=== PATIENT | female | born 1940 | race Caucasian/White ===

== ENCOUNTER → 2016-07-25 | Outpatient (CLI) | payer MEDICARE ==
[~2016-07-25] MED LIST: ALLO100T PO; AMIO200T PO; ARMO30TA PO; ASPI1TAB69 PO; BIOT1SUB SL; CIPR250T2 PO; GABA400C5 PO; LYSI1TAB4 PO; MAGN100T2 PO; PROBCAP10 PO; PYRI1TAB5 PO; SODI-345 PO; THYR15 PO; TOPR50TA PO; TRAM50TA PO; VITA500030 CHEW; ZINC25TA PO; [UNRECOGNIZED DRUG - CODE]; [UNRECOGNIZED DRUG - CODE]
[2016-07-25 14:03] LABS: AUTOMATED NEUTROPHIL # 3.5 TH/MM3 (1.8-7.7); BASOPHIL % 0.8 % (0.0-2.0); EOSINOPHIL # 0.1 TH/MM3 (0-0.4); EOSINOPHIL % 2.4 % (0.0-4.0); HEMATOCRIT 36.2 % (35.0-46.0); HEMO FLAGS DIFF FINAL; LYMPH % 20.5 % (9.0-44.0); LYMPHOCYTE # 1.1 TH/MM3 (1.0-4.8); MEAN CORPUSCULAR HEMOGLOBIN 28.6 PG (27.0-34.0); MEAN CORPUSCULAR HGB CONC 32.6 % (32.0-36.0); NEUT % 66.3 % (16.0-70.0); PLATELET COUNT 150 TH/MM3 (150-450); RED BLOOD COUNT 4.12 MIL/MM3 (4.00-5.30); RED CELL DISTRIBUTION WIDTH 15.1 % (11.6-17.2); WHITE BLOOD COUNT 5.3 TH/MM3 (4.0-11.0)
[2016-07-25 14:07] LABS: BACTERIA, URINE OCC /hpf; BLOOD, URINE SMALL (NEG); GLUCOSE,URINE NEG (NEG); HYALINE CAST, URINE 1 /lpf (RARE); KETONE, URINE NEG (NEG); MUCUS URINE FEW /lpf (OCC); NITRITE,URINE NEG (NEG); PH, URINE 5.5 (5.0-8.5); SQUAMOUS EPITHELIAL CELL URINE 1 /hpf (0-5); URINE COLOR LIGHT-YELLOW (YELLW/STRAW)
[2016-07-25 14:10] LABS: APTT (PATIENT) 24.7 SEC (24.3-30.1); INTERNATIONAL NORMALIZED RATIO 0.9 RATIO
[2016-07-25 14:12] LABS: COMMENT (UR) CULTURE INDICATED; CULTURE IF INDICATED CULTURE INDICATED
[2016-07-25 14:28] LABS: ALKALINE PHOSPHATASE 102 U/L (45-117); ALT (GPT) 53 U/L (10-53); ANION GAP 9 MEQ/L (5-15); AST (GOT) 46 U/L (15-37); BICARBONATE 26.2 MEQ/L (21.0-32.0); BLOOD UREA NITROGEN 37 MG/DL (7-18); CHLORIDE 105 MEQ/L (98-107); GLOMERULAR FILTRATION RATE 25 ML/MIN (>89); GLUCOSE,FASTING 106 MG/DL (74-99); POTASSIUM 4.5 MEQ/L (3.5-5.1); SODIUM (NA) 140 MEQ/L (136-145); TOTAL BILIRUBIN ADULT 0.9 MG/DL (0.2-1.0)
--- NOTE | 2016-07-25 15:23 | RADRPT ---
EXAM DATE/TIME: 07/25/2016 13:29 [facility] COMPARISON: No previous studies available for comparison. INDICATIONS : Preop for kyphoplasty. MEDICAL HISTORY : None. SURGICAL HISTORY : Fusion, cervical. ENCOUNTER: Initial ACUITY: 1 day PAIN SCORE: 0/10 LOCATION: Bilateral upper chest FINDINGS: Moderate scoliotic deformity is present to the right with a rotatory component with the apex at T9-T1 0. The cardiac silhouette is enlarged in transverse diameter. The lungs are free of acute parenchymal opacity. No effusions are identified. The aortic knob is prominent with tortuosity of the descending thoracic aorta. CONCLUSION: 1. No acute cardiopulmonary disease. Juancho Buchanan MD on July 25, 2016 at 15:19 Board Certified Radiologist. This report was verified electronically.
== END ==
LOC: CPRE 11:56
PROVIDERS: ATTEND Neurological Surgery
DX: Z01.811 Encounter for preprocedural respiratory examination (principal); Z01.812 Encounter for preprocedural laboratory examination; S32.000A Wedge compression fracture of unspecified lumbar vertebra, initial encounter for closed fracture; X58.XXXA Exposure to other specified factors, initial encounter; I10 Essential (primary) hypertension; E03.9 Hypothyroidism, unspecified; R82.90 Unspecified abnormal findings in urine
CPT/HCPCS: 36415; 71020; 80053; 81001; 85025; 85610; 85730; 87086

== ENCOUNTER → 2016-08-03 | Day surgery (SDC) | payer MEDICARE ==
[~2016-08-03] VITALS: Ht 157.5 cm; Wt 67.1 kg
[~2016-08-03] MED LIST changes: +BUPIVACAINE/EPINEPHRINE 0.5% PF 30 ML VIAL ONE; +DEXAMETHASONE SOD PHOS 4 MG/ML VIAL ONE; +DO NOT ADM ANY ANTICOAGULANT DRUGS XX PRN; +FAMOTIDINE 20 MG/2 ML VIAL ONE; +IOHEXOL 350 MG/ML 50 ML BTL (for RAD DIAG) ONE; +MIDAZOLAM HCL 2 MG/2 ML VIAL ONE; +NEOSTIGMINE 3 MG/3 ML SYR IV ONE; +ONDANSETRON HCL 4 MG/2 ML VIAL IV PUSH ONE; +ONDANSETRON HCL 4 MG/2 ML VIAL ONE; +PHENYLEPH/NS 1000 MCG/10 ML SYR IV ONE; +PROMETHAZINE INJ 25 MG/ML VIAL ONE; +PROPOFOL 200 MG/20 ML AMP IV ONE; +SODIUM CHLORIDE 0.9% INJ 100 ML ONE; -[UNRECOGNIZED DRUG - CODE]; +ceFAZolin INJ 1,000 MG VIAL ONE; +ePHEDrine/NS 25 MG/5 ML SYR IV ONE; +fentaNYL CITRATE 250 MCG/5 ML AMP ONE
[2016-08-03 08:43] VITALS: BP 183/80; PULSE 75; RESP 16; TEMP 98.1; O2SAT 100
--- NOTE | 2016-08-03 10:07 | PD.OP ---
MD Saida Macario MD Operative Report Date of Surgery: Aug 03, 2016 Preoperative Diagnosis: Intractable low back pain from L3 vertebral body compression fracture Postoperative Diagnosis: Same Procedure: L3 kyphoplasty Anesthesia: Gen. endotracheal by Patel Santa Surgeon: Marino Lynch M.D. Log Preparer(s): None Operation and Findings: Following administration of a general endotracheal anesthesia patient was placed in the prone position on chest rolls and Danish table and all pressure points adequate padded. IV antibiotics were administered intravenously and the thoracolumbar area posteriorly prepped with a Betadine solution and painted and draped in the usual sterile fashion. Using AP and lateral arthroscopy guidance the stab incision sites were made at the L3 level overlying the pedicles bilaterally after infiltrating the skin was 0.5% Marcaine. The Jamshidi needles were then passed into the vertebral body to the pedicles on both sides and the hand-held drill trajectory created. The drills were then removed and then the balloons were passed into the vertebral body through both sides and dilated to create a cavity and restore vertebral body height. Subsequently the balloons were removed and the cavity packed with the bone cement 6 cc total. The guide was then removed and Steri-Strips applied at the puncture wounds along with a sterile dressing. He was then turned in spine position, extubated and taken to the recovery room. There were no intraoperative medications and all sponge and needle count was correct at the end the procedure. Estimated blood loss less than 5 cc. Marino Lynch MD Aug 03, 2016 10:07
[2016-08-03 12:25] VITALS: BP 142/70; PULSE 68; RESP 16; TEMP 97.5; O2SAT 98
--- NOTE | 2016-08-03 16:29 | RADRPT ---
EXAM DATE/TIME: 08/03/2016 10:05 [facility] COMPARISON: No previous studies available for comparison. INDICATIONS : L3 Kyphoplasty. MEDICAL HISTORY : Hypertension. Stroke. Rheumatoid arthritis. A-fib. Crohn's. SURGICAL HISTORY : Ileostomy. ENCOUNTER: Initial ACUITY: 1 day PAIN SCORE: Non-responsive. LOCATION: Lumbar spine. FINDINGS: There is evidence of previous kyphoplasty at L3. There is good filling of the vertebral body without evidence of extravasation. CONCLUSION: 1. Postsurgical changes as above. Juancho Buchanan MD on August 03, 2016 at 16:27 Board Certified Radiologist. This report was verified electronically.
== END | disposition home or self-care (01) ==
LOC: HSDC 07:47
PROVIDERS: ATTEND Neurological Surgery
DX: S32.030A Wedge compression fracture of third lumbar vertebra, initial encounter for closed fracture (principal); I10 Essential (primary) hypertension; E03.9 Hypothyroidism, unspecified
CPT/HCPCS: 01936; 22514; 72100; J0690; J1100; J2250; J2370; J2405; J2550; J2710; J3010; Q9967